=== PATIENT | female | born 1990 | race Caucasian/White ===

== ENCOUNTER 2021-04-04 15:23 | Emergency (ER) | payer MEDICAID, SELFPAY ==
[2021-04-04 15:24] VITALS: BP 152/113; PULSE 111; RESP 14; TEMP 36.2; O2SAT 95; BMI 36.6
[2021-04-04] MEDS: Morphine 4 MG/ML Syringe IM (16:40)
--- NOTE | 2021-04-04 16:45 | RAD_ITS ---
STUDY: X-RAY - LUMBAR SPINE REASON FOR EXAM: Female, 31 years old. Injury/Pain TECHNIQUE: 3 view(s) of the lumbar spine were obtained. COMPARISON: None FINDINGS: Normal lumbar lordosis. There is no substantial scoliosis. There is a normal alignment of the vertebrae. Normal vertebral bodies and endplates. Normal disc space heights. There is no demonstrated fracture. The soft tissue structures are unremarkable. RAD/Lumbar Spine 2 or 3 Views IMPRESSION: Normal x-ray examination of the lumbar spine. Electronically Signed: Bear Avila MD at 17:00 EDT , Service support ,
--- NOTE | 2021-04-04 16:51 | ED.VIS.BACK ---
HPI History of Present Illness Chief Complaint: Back Informant: patient Onset/Context/Timing Onset: Weeks (1) Timing: Continuous Quality: Sharp and Dull Location: Lumbar Worsened by: improves with Nothing Relieved by: Nothing Associated Symptoms Associated Symptoms: Negative for Numbness, Tingling, Radiation to Right Leg, Radiation to Left Leg, Fever, Abdominal Pain, Dysuria, Unable to Ambulate, Unable to Transfer, Urinary Retention, Urinary Incontinence, Constipation and Fecal Incontinence Narrative Narrative: Patient presents with back pain that has been getting worse over the past week. Patient denies any specific trauma or injury. Patient states she does a lot of lifting at work. Patient states the pain is over her lower lumbar area. Patient denies any radiation of the pain to her lower extremities. Patient denies any bowel or bladder changes. Patient denies any saddle anesthesia. Patient states nothing makes her pain better and nothing makes it worse. Patient describes the pain as a constant dull pain but sharp at times. PFSH PFSH Medical History Chronic back pain Home Medications norethindrone ac-eth estradiol [Microgestin 1.5 ()] 1 tab PO DAILY 04/04/21 [History Last Taken Unknown] oxycodone-acetaminophen 1 tab PO Q6H PRN PRN 3 Days #12 tablet 04/04/21 [Rx Last Taken Unknown] Allergy/AdvReac Type Severity Reaction Status Date / Time amoxicillin Allergy Hives Verified 11/27/14 20:10 hydrocodone Allergy Hives Verified 04/04/21 15:24 WOOL Allergy Hives Uncoded 11/27/14 20:06 no surgical history Social History Smoking Status: Current every day smoker tobacco type: cigarettes ROS ROS ED Constitutional Constitutional ED: Denies chills or fever(s) Eyes Eyes: Denies blurry vision or change in vision ENT ENT ED: Denies rhinorrhea or sore throat Cardiovascular Cardiovascular: Denies chest pain or palpitations Respiratory/Chest Respiratory/Chest: Denies cough or dyspnea Gastrointestinal Gastrointestinal: Denies nausea or vomiting Genitourinary Genitourinary ED: Denies dysuria or hematuria Musculoskeletal Musculoskeletal: Reports back pain; Denies neck pain Integumentary Denies abscess or rash Neurologic Neurologic: Denies headache(s) or weakness Allergic/Immunologic Allergic/Immunologic ED: Denies mouth swelling or urticaria EXAM Physical Exam Const Vital Signs: 04/04/21 15:24 Temperature 97.2 F L Temperature Source Temporal Pulse Rate 111 H Respiratory Rate 14 Blood Pressure 152/113 H Blood Pressure Mean 126 Pulse Ox 95 Oxygen Delivery Method Room Air Positive well nourished, well developed and obese General Appearance ED: well developed Nutritional Appearance: obese HEENT Reports moist mucous membranes Neck supple and no JVD Back/Spine Back/Spine Narrative: There is tenderness and spasm over the lumbar paraspinal muscles. Range of motion was limited in all motions of the lumbar spine secondary to pain. There are some mild midline tenderness. There is no bony crepitance or step-off noted. Straight leg raises were negative bilaterally. Strength is 5/5 bilaterally in the lower extremities. Deep tendon reflexes are 2/4 bilaterally in the lower extremities. There are no sensory deficits. Neuro oriented x3 and no sensory deficits noted Sensorium / Orientation: alert Motor Exam: strength 5/5 throughout Deep Tendon Reflexes: Rt Patellar (L4): 2+, Lt Patellar (L4): 2+, Rt Ankle (S1): 2+ and Lt Ankle (S1): 2+ Deep Tendon Reflexes Back: Rt Patellar (L4): 2+, Lt Patellar (L4): 2+, Rt Ankle (S1): 2+ and Lt Ankle (S1): 2+ Psych mental status grossly normal MDM MDM MDM Narrative Medical decision making narrative: Patient requested COVID-19 rapid antigen test. This was obtained and was negative. X-rays of the lumbar spine were obtained. There are 3 views. On my interpretation, there are no acute fractures or spondylolisthesis. Radiologist also interpreted the x-rays and agrees. Patient was advised of her findings. Patient was given a prescription for a short course of Percocet. Patient was instructed to use ice to the area. Patient was instructed to follow-up with her primary care physician in 3 to 5 days. Patient understood and was agreeable with the plan. All questions were answered. Radiography X-Ray: LS SPine, Read by ED Physician, Read by Radiologist, Normal, No Fracture and Normal Bony Alignment Diagnostic Testing: Radiology Impression Lumbar Spine X-Ray 04/04/21 16:45 IMPRESSION: Normal x-ray examination of the lumbar spine. Electronically Signed: Bear Avila MD at 17:00 EDT , Service support , Discharge Plan Triage Chief Complaint: Back ED Provider: Jitendra Cabrera Dx/Rx/DC Orders Clinical Impression: Acute low back pain Instructions: ED Back Pain (Acute or Chronic) Prescriptions: New oxycodone-acetaminophen [oxycodone-acetaminophen] 1 TABLET tablet 1 tab PO Q6H PRN PRN (Reason: Pain) 3 Days Qty: 12 RF: 0 No Action norethindrone ac-eth estradiol [Microgestin .01/08 (21)] 1.5-30 mg-mcg tablet 1 tab PO DAILY RF: 0 Primary Care Provider: Benigno Wright Referrals: Benigno Wright MD [Primary Care Provider] - 3-5 Days Disposition Disposition: Home, Self Care
== END 2021-04-04 19:01 | disposition home or self-care (01) ==
PROVIDERS: Emergency Provider Emergency Medicine; PCP Family Medicine
DX: M54.5 Low back pain (principal); G89.29 Other chronic pain; M62.830 Muscle spasm of back; Z20.822 Contact with and (suspected) exposure to COVID-19; E66.9 Obesity, unspecified; F17.210 Nicotine dependence, cigarettes, uncomplicated; Z79.3 Long term (current) use of hormonal contraceptives
CPT/HCPCS: 72100; 87426; 96372; 99282

== ENCOUNTER 2024-03-26 11:47 | Inpatient (IN) | payer MEDICAID, SELFPAY ==
[2024-03-26] VITALS (107 sets, daily range): BP systolic 135–190; BP diastolic 75–100; PULSE 73–102; RESP 16; TEMP 36.3–37; O2SAT 93–99; BMI 43.4
[2024-03-26 11:48] LABS: Hematocrit 35.6 % (37-47); Hemoglobin 11.6 g/dL (12.0-15.0); Mean Corp Hgb Conc 32.6 g/dL (32-36); Mean Corpuscular Hgb 30.2 pg (27.0-32.0); Mean Corpuscular Volume 92.7 fL (81-99); Mean Platelet Vol. 10.7 fl (6.2-12.0); Platelet Count 223 K/mm3 (150-450); RBC Distribution Width CV 13.2 % (11.6-14.6); RBC Distribution Width SD 43.9 fl (35.1-43.9); Red Blood Count 3.84 M/mm3 (4.2-5.4)
[2024-03-26] MEDS: Lactated Ringers 1,000 ML 15 ML IV (12:00)
[2024-03-26] MEDS: Labetalol (Prefilled) 20 MG/4 ML IV (12:00)
[2024-03-26] MEDS: Magnesium Sulfate 4gm/100mL 4 GM/100 ML IV.SOLN. IV (12:08)
[2024-03-26 12:14] LABS: Protein, Urine (Random) 22.5 mg/dL (<11.9); Protein:Creat Ratio 271 mg/g CRE (0-200)
[2024-03-26] MEDS: Magnesium Sulfate 4gm/100mL 2 GM/50 ML IV.SOLN. IV (12:28)
[2024-03-26] MEDS: Magnesium Sulfate 20 GM/500 ML BAG IV ×2 (12:43→22:36)
[2024-03-26 12:52] LABS: AST(SGOT) 16 U/L (15-37); Alanine Aminotransfer ALT/SGPT 30 U/L (13-56); Creatinine, Serum 0.65 mg/dL (0.55-1.02); EST Glomerular Filtration Rate 109 mL/min (>60); Est Glom Filt Rate - Afr Amer 132 mL/min (>60); Uric Acid 2.8 mg/dL (2.6-6.0)
[2024-03-26] MEDS: NIFEdipine 60 MG Tablet PO (13:13)
[2024-03-26] MEDS: miSOPROStol 25 MCG TABLET VAGINAL ×2 (13:27→17:43)
--- NOTE | 2024-03-26 14:05 | PCM.HP.OB ---
HPI - General General Date of Admission: 03/26/24 Date of Service: 03/26/24 Chief Complaint: elevated blood pressure HPI Narrative DAVID VALDEZ, is a 34 F who presents from the office with elevated blood pressure and a headache. Has a headache today. No vision changes or RUQ pain. No ctx, vb, lof. Good FM. PFSH PFSH Medical History Chronic back pain Home Medications ?Medication ?Instructions ?Recorded ?Last Taken ?Type norethindrone acetate 1.5 1 tab PO DAILY 04/04/21 Unknown History mg-ethinyl estradiol 30 mcg tablet (Microgestin) oxycodone-acetaminophen 5 mg-325 1 tab PO Q6H PRN PRN Pain 3 days 04/04/21 Unknown Rx mg tablet #12 TABLETS Allergy/AdvReac Type Severity Reaction Status Date / Time amoxicillin Allergy Hives Verified 11/27/14 20:10 hydrocodone Allergy Hives Verified 04/04/21 15:24 wool Allergy Hives Verified 04/03/22 14:54 Social History Smoking Status: Current every day smoker tobacco type: cigarettes NST FHR Rate Baby A Baseline: 125 Variability:: Moderate Accelerations:: 15 x 15 Decelerations:: None NST Reactive:: Yes FHR Category:: Category I Uterine Activity:: none Vital Signs Vital Signs Vital Signs: 03/26/24 11:32 03/26/24 11:32 03/26/24 11:48 Temperature Temperature Source Pulse Rate 79 Respiratory Rate Blood Pressure 179/100 H 190/93 H BP Systolic 179 190 BP Diastolic 100 93 03/26/24 11:48 03/26/24 12:10 03/26/24 12:10 Temperature 97.8 F Temperature Source Oral Pulse Rate 99 Respiratory Rate Blood Pressure BP Systolic BP Diastolic 03/26/24 12:10 03/26/24 12:12 03/26/24 12:12 Temperature Temperature Source Pulse Rate 78 Respiratory Rate 16 Blood Pressure 147/90 H BP Systolic 147 BP Diastolic 90 03/26/24 12:22 03/26/24 12:22 03/26/24 12:32 Temperature Temperature Source Pulse Rate 73 Respiratory Rate Blood Pressure 160/93 H 159/95 H BP Systolic 160 159 BP Diastolic 93 95 03/26/24 12:32 03/26/24 12:42 03/26/24 12:42 Temperature Temperature Source Pulse Rate 82 82 Respiratory Rate Blood Pressure 149/94 H BP Systolic 149 BP Diastolic 94 03/26/24 12:52 03/26/24 12:52 03/26/24 13:02 Temperature Temperature Source Pulse Rate 82 Respiratory Rate Blood Pressure 143/92 H 154/94 H BP Systolic 143 154 BP Diastolic 92 94 03/26/24 13:02 03/26/24 13:18 03/26/24 13:18 Temperature Temperature Source Pulse Rate 81 79 Respiratory Rate Blood Pressure 143/92 H BP Systolic 143 BP Diastolic 92 03/26/24 13:34 03/26/24 13:34 03/26/24 13:49 Temperature Temperature Source Pulse Rate 82 Respiratory Rate Blood Pressure 140/87 H 141/85 H BP Systolic 140 141 BP Diastolic 87 85 03/26/24 13:49 03/26/24 14:03 03/26/24 14:03 Temperature Temperature Source Pulse Rate 74 78 Respiratory Rate Blood Pressure 138/84 H BP Systolic 138 BP Diastolic 84 Physical Exam Const alert and no apparent distress General Appearance: comfortable HEENT normocephalic Resp normal respiratory effort GI soft to palpation, non-tender and non-distended external exam normal Narrative: No evidence of herpes There is a 1.5 cm superficial cyst noted over clitoral medeiros Extremity no calf tenderness Extremity Narrative: +Edema bilateral LE's Labs Labs Labs: Hct 35.6 % (37-47) L Hgb 11.6 g/dL (12.0-15.0) L N.gonorrhoeae DNA (GAYLA) Negative (Negative) Group B Strep DNA Pending Assessment & Plan (1) 35 weeks gestation of : PLAN: Admit for severe range blood pressures in the setting of known gHTN and headache. - Labetalol HTN protocol - Mag for seizure prophylaxis - BMZ - GBS on admission - Epidural PRN - Discussed recommendation for delivery given over 34 weeks with severe range blood pressures requiring IV medication and a headache. Discussed risks of prematurity. Discussed r/b/a induction of labor and patient desires to proceed - Cytotec q 4 hours and intracervical osuna when able - Bedside TAUS performed confirming vertex presentation - Pelvis adequate and EFW < 4500 grams. Ancipitate vaginal delivery (2) Elevated blood pressure affecting in third trimester, antepartum: (3) Headache: (4) Pre-eclampsia: (5) Tobacco use: (6) Obesity: (7) History of herpes genitalis: PLAN: No evidence of herpes lesions on exam Has been taking Acyclovir No symptoms of outbreak (8) History of depression: (9) Encounter for planned induction of labor:
[2024-03-26 14:15] LABS: Group B Strep DNA By PCR Negative (Negative); Internal Control PASS; Probe Check PASS; Specimen Processing Control PASS
[2024-03-26 15:03] LABS: Absolute Lymphocyte Count 1.93 X10^3/uL (0.83-4.51); Absolute Neutrophil Count 9.7 X10^3/uL (2.0-7.7); Basophil% 0.8 % (0-1); Eosinophil# 0.21 X10^3/uL; Eosinophils% 1.6 % (0-5); Lymphocyte # 1.93 X10^3/ul (0.83-4.51); Lymphocyte % 14.9 % (19-41); Monocyte# 0.93 X10^3/uL; Monocyte% 7.2 % (0-10); NRBC Flagged by Analyzer 0 % (0-5); Neutrophil # 9.71 X10^3/uL (2.7-7.7); Neutrophil % 74.7 % (47-70)
[2024-03-26] MEDS: Betamethasone/Betamethasone 30 MG/5 ML Vial 12 MG IM (15:31)
--- NOTE | 2024-03-26 16:35 | PCM.PN.BLA ---
Progress Note pt comfortable and offers no complaints. Assessment & Plan Assessment/Plan (1) Encounter for planned induction of labor: PLAN: Plan Cvx remains closed and unable to place intracervical osuna. Cont with Cytotec q 4 hours at this time. Will try osuna placement again with next cervical exam.
[2024-03-26 20:31] LABS: Syphilis Antibodies Non-reactive
[2024-03-26] MEDS: Acetaminophen 500 MG Tablet PO (21:09)
[2024-03-26] MEDS: 0.9% Normal Saline Single 100 ML IV.SOLN. INTRA-UTER (22:45)
--- NOTE | 2024-03-26 22:53 | PCM.PN.BLA ---
Progress Note pt doing well and offers no complaints. feels well. Assessment & Plan Assessment/Plan (1) Encounter for planned induction of labor: PLAN: Intracervical osuna inserted in usual fashion and filled with 30 cc saline. Cervix 0.5/t/h so an additional dose of cytotec given. Will start pitocin per protocol 4 hours after cytotec. (2) Pre-eclampsia:
[2024-03-26] MEDS: miSOPROStol 25 MCG TABLET PO (23:05)
[2024-03-26] MEDS: Oxytocin 15 Units/NS 250ml 15 UNITS/250 ML IV.SOLN 83 UNITS IV (23:30)
[2024-03-27] VITALS (164 sets, daily range): BP systolic 82–168; BP diastolic 48–96; PULSE 38–102; RESP 14–21; TEMP 36.1–37.2; O2SAT 81–99
[2024-03-27] MEDS: Acetaminophen 500 MG Tablet PO ×2 (03:26→21:43)
[2024-03-27] MEDS: Oxytocin 15 Units/NS 250ml 15 UNITS/250 ML IV.SOLN 2 UNITS IV (05:08)
[2024-03-27] MEDS: Magnesium Sulfate 20 GM/500 ML BAG IV ×2 (07:50→17:55)
[2024-03-27] MEDS: NIFEdipine 60 MG Tablet PO (10:54)
[2024-03-27] MEDS: LACTATED RINGERS 500 ML 999 ML IV ×2 (11:07→13:27)
[2024-03-27] MEDS: Lactated Ringers 1,000 ML 200 ML IV ×3 (11:34→19:06)
[2024-03-27] MEDS: Betamethasone/Betamethasone 30 MG/5 ML Vial 12 MG IM (14:34)
[2024-03-27] MEDS: Lactated Ringers 1,000 ML 900 ML IV (17:56)
[2024-03-27] MEDS: fentaNYL-bupivacaine (epidural) 100 ML BAG EPIDURAL (20:02)
[2024-03-27] MEDS: Sodium Citrate/Citric Acid 30 ML UDC PO (21:42)
[2024-03-27] MEDS: Cefazolin 2 GM in 0.9% Normal Saline (100mL Bag) 100 ML IV (21:49)
[2024-03-27] MEDS: TRANEXAMIC ACID 1,000 MG in 0.9% Normal Saline (100mL Bag) 100 ML 440 MG IV (21:59)
--- NOTE | 2024-03-27 22:09 | PLAC_PTH ---
PATIENT: DAVID VALDEZ LOC: [facility] U#:[id number] AGE/SX: 34/F ROOM: WP014 RE03/26/[address]: Dr. Milagro Richards MD : 1990 BED: 1 DIS: 03/30/2024 SPEC #: [id number] RECD: 03/28/24 00:39 STATUS: JOSH NAVARRO #: [id number] CARMELO: 03/27/24 22:[address]: Milagro Richards DEPT: SURGICAL PATHOLOGY RECD BY: Marlyn Sahu ENTERED: 03/30/24 07:46 SP TYPE: PLACENTA OTHR DR: Dr. Benigno Wright MD Tissues: A - Placenta, NOS B - Fallopian tube Procedures: Surgery Specimen Level II Surgery Specimen Level V HEADER OPERATION: Primary section PRE-OP DIAGNOSIS: Preeclampsia TISSUE SUBMITTED: A- Placenta, B- Bilateral fallopian tubes MICROSCOPIC DIAGNOSIS A. Placenta: Placental disc - third trimester placenta (452 gm). Membranes - no pathologic diagnosis. Umbilical cord - three blood vessels and no pathologic diagnosis. B. Bilateral fallopian tubes, salpingectomy: Bilateral fallopian tubes, no pathologic diagnosis. SJ: 04/01/2024 MICROSCOPIC DESCRIPTION Slides are reviewed. GROSS DESCRIPTION A. SPECIMEN: PLACENTA / CLINICAL INFORMATION: A. Weight: 2.56 kg B. Gestational Age:35 weeks C. Sex: Male PLACENTAL WEIGHT (POST FIXATION): 452 gm PLACENTAL DIMENSIONS: 15.0 x 14.0 x 4.0 cm PLACENTAL SHAPE: Usual ovoid PLACENTAL WEIGHT FOR GESTATIONAL AGE: Within 10-99th percentile MEMBRANES - Present A. Insertion: Marginal B. Site of rupture from edge: at the margin of placental disc C. Color of membrane: Block-barry D. Abnormalities: None UMBILICAL CORD - Present A. Color: Block-barry B. Insertion: Central C. Length: 39.0 cm D. Diameter: 1.0 cm E. Number of vessels: Three F. Abnormalities: None PLACENTAL DISC - Present A. Color of surface: Block-barry B. surface abnormalities: None C. Maternal cotyledons: Intact with minimal tears D. Attached retro placental clot: No clot E. Cut surface: Dark red and spongy F. Lesions: None G. Separate clot: Absent SECTIONS SUBMITTED: (6 cassettes) 1. Membrane roll 2. Cord, maternal end 3. Cord, end 4. Placental disc, and maternal surfaces 5. Placental disc, and maternal surfaces 6. Placental disc, and maternal surfaces 03/31/2024 B. Received in fixative is one container labeled with the patient's name and designated bilateral fallopian tubes. The specimen consists of bilateral fallopian tubes including fimbrial ends. Right fallopian tube measures 8.0cm in length and 0.7cm in diameter. Left fallopian tube measures 7.5 cm in length and 0.7 cm in diameter. Sections reveal unremarkable cut surfaces. Solar Manager sections are submitted in two cassettes with each cassette containing one fallopian tube. ANDREA/ 03/30/2024 TC:4 CPT: [id number]
[2024-03-27] MEDS: Azithromycin 500 MG in Dextrose 5%-Water (250mL Bag) 250 ML 250 MG IV (22:41)
--- NOTE | 2024-03-27 22:46 | OP.PCM_ITS ---
Maternal Data Information Final JUAN CARLOS: 04/29/24 Gestational age: 35 2/7 Details Operative Information Date of Procedure: 03/27/24 Pre-Operative Diagnosis: failed induction, preeclampsia with severe features, sterilization request Post-Operative Diagnosis: same Classification: TAHIRA Procedure Type: low transverse (with bilateral salpingectomy) digital content coordinator #1: Adriano Serna Type of Anesthesia: Epidural Anesthesiologist: Morris Jiang Special Medications: duramorph, tranexamic acid Antibiotic Given: Ancef 2 grams IV x1 and Zithromax 500 mg/5 mL X1 Drain: Graham to straight drain Estimated Blood Loss: 900 Fluids Replaced: 750 Procedure Start Time: 22:06 Procedure Stop Time: 22:52 Time of Delivery: 22:09 Findings Description of Procedure: The patient was taken to the operating room. She was prepped and draped in the dorsal supine position with a leftward tilt. A Pfannenstiel skin incision was made approximately 2 cm above the symphysis pubis and carried through to underlying layer fascia with the scalpel. The fascia was incised incised in the midline and extended laterally with the Schaefer scissors. The fascia was dissected off the rectus muscles with blunt and sharp dissection. The rectus muscles were in the midline and the peritoneum was entered bluntly. The peritoneal incision was stretched and the bladder blade was placed. The Ketan O retractor was placed in the usual fashion and care was taken to ensure no abdominal contents were trapped underneath it. The uterine incision was made in a low transverse fashion with the scalpel and extended superiorly and inferiorly with blunt dissection. The amniotic membranes were ruptured bluntly and clear amniotic fluid returned. The infant's head was brought to the incision in the flexed position and delivered without difficulty. The remainder of the was delivered with gentle traction and fundal pressure in the standard fashion. The mouth and nares were bulb suctioned. The cord was clamp ed and cut as the infant was stimulated. Cord clamping was delayed. The infant was handed off to the waiting nursing staff. The placenta was delivered with fundal massage and gentle traction in the standard fashion. The uterus was left in situ and cleared of all clots and debris. The uterine incision was closed with #1 Vicryl in a running locked fashion. Several #1 Vicryl [id number] sutures were needed through a bleeding sinus on the left side to obtain attain hemostasis. The incision was examined and was found to be hemostatic. The left fallopian tube was identified and followed out to the fimbriated end. It was tented up with Yudi clamps. The LigaSure device was used to clamp, seal and transect the antimesenteric portions of the tube and transect the tube of the cornual insertion. Excellent hemostasis was noted. The same procedure was performed on the contralateral side and excellent hemostasis was noted. The uterine incision was reexamined and found to be hemostatic. Some Heema blast was placed over the uterine incision.. The rectus muscles were examined and any bleeding was Bovie cauterized. The parietal peritoneum and rectus muscles were closed en bloc with an 0 Vicryl running suture. Heema blast was placed over the rectus muscles. The rectus fascia was examined and any bleeding was Bovie cauterized and the rectus fascia was closed with looped #1 PDS suture in a running standard fashion. The subcutaneous tissue was examining and any bleeding was Bovie cauterized. The subcutaneous tissue was reapproximated with 3-0 Vicryl suture. The skin was closed in a subcuticular fashion by the VARNISH MIXER with me present in the labor and delivery suite. I performed the remainder of the procedure with assistance. All sponge, lap, and needle counts were correct. The patient was taken to her room for recovery in a stable condition. Presentation: Positive for Vertex Amniotic Membrane Rupture Type: Artificial Amniotic Fluid Description: Clear Placental Delivery Description: Manual Removal Placenta Disposition: Sent to Pathology Specimen(s) Sent to Pathology: placenta and tubes Cord Vessel Description: 3 Vessels Cord Entanglement: None Cord Gases: ABG and VBG Infant A Gender: Male (5lb 2 oz, Rolo JR) (1 minute): 8 (5 minute): 9 Delayed Cord Clamping: Yes Complications Complications: none Admit VTE Documentation VTE Present on Admission: No VTE Mechan Device Prophylaxis: SCD's VTE Pharm Prophylaxis Ordered: Yes
[2024-03-28] VITALS (245 sets, daily range): BP systolic 103–136; BP diastolic 63–82; PULSE 68–114; RESP 15–20; TEMP 35.8–37.5; O2SAT 86–99
[2024-03-28 00:52] LABS: Pathology Specimen OB SEE PATHOLOGY REPORT
[2024-03-28] MEDS: Ketorolac 30 MG/ML Syringe IV ×4 (01:02→18:56)
[2024-03-28] MEDS: Lactated Ringers 1,000 ML 50 ML IV (02:49)
[2024-03-28] MEDS: Acetaminophen 500 MG Tablet 1000 MG PO ×4 (03:26→21:32)
[2024-03-28] MEDS: Magnesium Sulfate 20 GM/500 ML BAG IV ×2 (04:02→14:20)
--- NOTE | 2024-03-28 05:57 | NURSING ---
2L nasal cannula applied to pt at this time, RN reminded pt of importance of maintaining SpO2 greater than 90%, pt verbalized understanding and consents to NC
[2024-03-28 06:11] LABS: Hematocrit 29.6 % (37-47); Hemoglobin 9.6 g/dL (12.0-15.0); Mean Corp Hgb Conc 32.4 g/dL (32-36); Mean Corpuscular Hgb 30.9 pg (27.0-32.0); Mean Corpuscular Volume 95.2 fL (81-99); Mean Platelet Vol. 11.2 fl (6.2-12.0); Platelet Count 216 K/mm3 (150-450); RBC Distribution Width CV 13.2 % (11.6-14.6); RBC Distribution Width SD 45.1 fl (35.1-43.9); Red Blood Count 3.11 M/mm3 (4.2-5.4); White Blood Count 18.1 K/mm3 (4.4-11.0)
[2024-03-28] MEDS: Enoxaparin 40 MG/0.4 ML Syringe SC ×2 (09:37→21:32)
[2024-03-28] MEDS: Sertraline 50 MG Tablet PO (09:37)
[2024-03-28] MEDS: Senna/Docusate Sodium 1 Tablet PO (09:37)
[2024-03-28] MEDS: NIFEdipine 60 MG Tablet PO (09:37)
[2024-03-28] MEDS: LACTATED RINGERS 500 ML 999 ML IV ×2 (09:45→20:04)
--- NOTE | 2024-03-28 12:02 | PCM.PN.OB ---
Subjective Subjective Doing well per patient and nursing staff. Ambulating and taking PO without difficulty. Voiding and passing flatus. Pain controlled. , services for assistance. Denies headache, visual changes, chest pain, shortness of breath, leg pain or increased bleeding. Lochia normal. Objective Data Objective Data Vital Signs: Vital Signs Temp Pulse Resp BP Pulse Ox O2 Del Method O2 Flow Rate 96.8 F L 71 18 107/67 88 Room Air 2 03/28/24 11:15 03/28/24 12:00 03/28/24 11:15 03/28/24 11:15 03/28/24 12:00 03/28/24 11:15 03/28/24 06:21 Oxygen Flow Rate (L/min) 2 Oxygen Delivery Method Room Air Weight: 253 lb 8.505 oz Body Mass Index (BMI) 43.4 Intake & Output: Intake and Output for Last 24 Hours 03/26/24 03/27/24 03/28/24 23:59 23:59 23:59 Intake Total 1244.17 / 1244.17 6951.06 / 6951.06 2141.66 / 2141.66 Output Total 1775 / 1775 3075 / 3075 837 / 837 Balance -530.83 / -530.83 3876.06 / 3876.06 1304.66 / 1304.66 Lab / Micro Data 03/28/24 05:30 03/26/24 11:30 Labs: Laboratory Results - last 24 hr 03/28/24 05:30: WBC 18.1 H, RBC 3.11 L, Hgb 9.6 L, Hct 29.6 L, MCV 95.2, MCH 30.9, MCHC 32.4, RDW Std Deviation 45.1 H, RDW Coeff of Kristy 13.2, Plt Count 216, MPV 11.2 Physical Exam Const alert and oriented x3 General Appearance: cooperative Orientation / Consciousness: awake, oriented to person, oriented to place and oriented to time Exam Limitations: no limitations HEENT normocephalic Head and Scalp: normal to inspection, normocephalic and atraumatic Face and Sinus: normal facial exam Eyes General Eye: normal appearance of both eyes Neck full ROM Chest Chest: symmetrical chest wall rise Resp normal respiratory effort and normal air movement Auscultation: clear to auscultation bilaterally Cardio regular rate, regular rhythm, S1 normal heart sound, S2 normal heart sound, no murmurs, no rub, no gallops and no clicks GI normal to inspection, nondistended, normoactive bowel sounds and non-tender GI Narrative: Dressing dry and intact appearance of the vagina normal Bladder / Kidney Exam: no CVA tenderness Back/Spine normal ROM Extremity normal to inspection and full ROM Skin no rashes or lesions noted Neuro oriented x3, CN's II-XII intact bilaterally and moves all extremities Sensorium / Orientation: awake, alert and oriented to person Motor Exam: clonus absent Deep Tendon Reflexes: Rt Patellar (L4): 2+ and Lt Patellar (L4): 2+ Assessment & Plan (1) History of depression: (2) Pre-eclampsia: (3) Elevated blood pressure affecting in third trimester, antepartum: (4) Delivery by section:
--- NOTE | 2024-03-28 12:42 | NURSING ---
1215- pulse ox noted to be 89-92% on room air, noted some exp wheeze to lt ant upper and lower that cleared w cough. o2 placed briefly at 2 liters. up to br and back to chair at bedside and o2 placed back on.
--- NOTE | 2024-03-28 14:33 | PCM.PN.OB ---
Subjective Subjective Pain well controlled, average lochia. No N/V. No SOMERS. Denies CP or SOB Objective Data Objective Data Vital Signs: Vital Signs Temp Pulse Resp BP Pulse Ox O2 Del Method O2 Flow Rate 96.8 F L 86 18 119/75 97 Room Air 2 03/28/24 11:15 03/28/24 14:28 03/28/24 13:25 03/28/24 13:25 03/28/24 14:28 03/28/24 13:25 03/28/24 06:21 Oxygen Flow Rate (L/min) 2 Oxygen Delivery Method Room Air Weight: 115 kg Body Mass Index (BMI) 43.4 Intake & Output: Intake and Output for Last 24 Hours 03/26/24 03/27/24 03/28/24 23:59 23:59 23:59 Intake Total 1244.17 / 1244.17 6951.06 / 6951.06 2452.50 / 2452.50 Output Total 1775 / 1775 3075 / 3075 978 / 978 Balance -530.83 / -530.83 3876.06 / 3876.06 1474.50 / 1474.50 Lab / Micro Data 03/28/24 05:30 03/26/24 11:30 Labs: Laboratory Results - last 24 hr 03/28/24 05:30: WBC 18.1 H, RBC 3.11 L, Hgb 9.6 L, Hct 29.6 L, MCV 95.2, MCH 30.9, MCHC 32.4, RDW Std Deviation 45.1 H, RDW Coeff of Kristy 13.2, Plt Count 216, MPV 11.2 Physical Exam Const alert General Appearance: cooperative GI GI Narrative: soft, moderate distention, fundus firm, appropriately tender. Abdominal bandage clean dry and intact Assessment & Plan (1) Delivery by section: (2) Pre-eclampsia: PLAN: With severe features. Cont. w/ magensium 24 hrs PP. Cont. w/ Po procardia maintanence. URine output low, responded to IVF bolus now low again> Is>>Os by 2+ liters. Will give IV lasix x 1 as is needing O2 to maintain O2 sats. However, may need more IVF in short term and will have to balance Is and Os. She required several fluid bolus during labor to maintain BP due to late decels. Anemia appropriate for intraop blood loss.
[2024-03-28] MEDS: Furosemide 20 MG/2 ML VIAL IV (14:51)
--- NOTE | 2024-03-28 20:20 | RAD_ITS ---
INDICATION: dyspnea postop EXAMINATION/TECHNIQUE: X-RAY - XR Chest 1 View COMPARISON: FINDINGS: LINES/DEVICES: None. LUNGS: No consolidation, edema or effusion. No pneumothorax. MEDIASTINUM AND CARDIOVASCULAR STRUCTURES: Cardiac silhouette not enlarged. Central airways and mediastinal contour are unremarkable. BONES AND SOFT TISSUES: Unremarkable. RAD/Chest 1 View (Portable) IMPRESSION: No radiographic evidence of acute cardiopulmonary disease. Electronically Signed: Dano Collins DO at 20:33 EDT ,
[2024-03-28 20:32] LABS: Hematocrit 29.7 % (37-47); Hemoglobin 9.8 g/dL (12.0-15.0); Mean Corpuscular Hgb 31.5 pg (27.0-32.0); Mean Corpuscular Volume 95.5 fL (81-99); Mean Platelet Vol. 10.5 fl (6.2-12.0); Platelet Count 175 K/mm3 (150-450); RBC Distribution Width CV 13.5 % (11.6-14.6); Red Blood Count 3.11 M/mm3 (4.2-5.4); White Blood Count 13.2 K/mm3 (4.4-11.0)
[2024-03-28 21:00] LABS: Anion Gap 6 (5-15); BUN 14 mg/dL (7-18); Chloride 102 mmol/L (98-107); Creatinine, Serum 0.54 mg/dL (0.55-1.02); EST Glomerular Filtration Rate 136 mL/min (>60); Est Glom Filt Rate - Afr Amer 165 mL/min (>60); Estimated Creatinine Clearance 179.21 ml/min; Glucose 111 mg/dL (74-106); Potassium 3.6 mmol/L (3.5-5.1); Sodium Level 136 mmol/L (136-145)
[2024-03-28 23:50] LABS: Pathology Specimen OB SEE PATHOLOGY REPORT
[2024-03-29] VITALS (128 sets, daily range): BP systolic 132–180; BP diastolic 77–94; PULSE 30–86; RESP 16; TEMP 35.8–36.8; O2SAT 81–99
[2024-03-29] MEDS: Ibuprofen 600 MG Tablet PO ×4 (00:32→19:18)
[2024-03-29] MEDS: Acetaminophen 500 MG Tablet 1000 MG PO ×4 (03:46→21:47)
--- NOTE | 2024-03-29 05:23 | NURSING ---
RN entered room, pt noted to be sleeping in bed and pulse ox was 93-94%, oxygen increased to 2 L via nasal cannula
[2024-03-29 06:06] LABS: Hematocrit 28.8 % (37-47); Hemoglobin 9.2 g/dL (12.0-15.0); Mean Corp Hgb Conc 31.9 g/dL (32-36); Mean Corpuscular Hgb 30.5 pg (27.0-32.0); Mean Corpuscular Volume 95.4 fL (81-99); Mean Platelet Vol. 10.7 fl (6.2-12.0); Platelet Count 176 K/mm3 (150-450); RBC Distribution Width CV 13.5 % (11.6-14.6); Red Blood Count 3.02 M/mm3 (4.2-5.4)
[2024-03-29 06:24] LABS: ALB/GLOB Ratio 0.6 RATIO (0.9-2.4); AST(SGOT) 38 U/L (15-37); Alanine Aminotransfer ALT/SGPT 66 U/L (13-56); Alkaline Phosphatase 99 U/L (45-117); Anion Gap 4 (5-15); BUN 12 mg/dL (7-18); BUN/Creat Ratio 23.3 RATIO (10-20); Calcium,Total 7.9 mg/dL (8.5-10.1); Chloride 103 mmol/L (98-107); Creatinine, Serum 0.51 mg/dL (0.55-1.02); EST Glomerular Filtration Rate 144 mL/min (>60); Est Glom Filt Rate - Afr Amer 174 mL/min (>60); Estimated Creatinine Clearance 189.75 ml/min; Globulin 3.6 g/dL (2.2-4.2); Glucose 94 mg/dL (74-106); Potassium 3.6 mmol/L (3.5-5.1); Protein, Total 5.6 g/dL (6.4-8.2); Sodium Level 136 mmol/L (136-145)
[2024-03-29] MEDS: Enoxaparin 40 MG/0.4 ML Syringe SC ×2 (09:45→21:47)
[2024-03-29] MEDS: Sertraline 50 MG Tablet PO (09:47)
[2024-03-29] MEDS: Senna/Docusate Sodium 1 Tablet PO (09:47)
--- NOTE | 2024-03-29 09:59 | PCM.PN.OB ---
Subjective Subjective Pain well controlled, average lochia.Denies SOMERS or visual changes. Denies CP os SOB Objective Data Objective Data Vital Signs: Vital Signs Temp Pulse Resp BP Pulse Ox O2 Del Method O2 Flow Rate 98.2 F 66 16 144/86 H 99 Nasal Cannula 1 03/29/24 07:57 03/29/24 08:25 03/29/24 07:57 03/29/24 07:57 03/29/24 08:25 03/29/24 07:57 03/29/24 07:57 Oxygen Flow Rate (L/min) 1 Oxygen Delivery Method Nasal Cannula Weight: 115 kg Body Mass Index (BMI) 43.4 Intake & Output: Intake and Output for Last 24 Hours 03/27/24 03/28/24 03/29/24 23:59 23:59 23:59 Intake Total 6951.06 / 6951.06 6022.25 / 6022.25 0 / 0 Output Total 3075 / 3075 2407 / 2407 1350 / 1350 Balance 3876.06 / 3876.06 3615.25 / 3615.25 -1350 / -1350 Lab / Micro Data 03/29/24 05:50 03/29/24 05:50 Labs: Laboratory Results - last 24 hr 03/28/24 20:15: WBC 13.2 H, RBC 3.11 L, Hgb 9.8 L, Hct 29.7 L, MCV 95.5, MCH 31.5, MCHC 33.0, RDW Std Deviation 46.0 H, RDW Coeff of Kristy 13.5, Plt Count 175, MPV 10.5, Sodium 136, Potassium 3.6, Chloride 102, Carbon Dioxide 28.0, Anion Gap 6, BUN 14, Creatinine 0.54 L, Estim Creat Clear Calc 179.21, Est GFR (MDRD) Af Amer 165, Est GFR (MDRD) Non-Af 136, BUN/Creatinine Ratio 26.0 H, Glucose 111 H, Calcium 7.0 L 03/29/24 05:50: WBC 11.0, RBC 3.02 L, Hgb 9.2 L, Hct 28.8 L, MCV 95.4, MCH 30.5, MCHC 31.9 L, RDW Std Deviation 47.0 H, RDW Coeff of Kristy 13.5, Plt Count 176, MPV 10.7, Sodium 136, Potassium 3.6, Chloride 103, Carbon Dioxide 29.0, Anion Gap 4 L, BUN 12, Creatinine 0.51 L, Estim Creat Clear Calc 189.75, Est GFR (MDRD) Af Amer 174, Est GFR (MDRD) Non-Af 144, BUN/Creatinine Ratio 23.3 H, Glucose 94, Calcium 7.9 L, Total Bilirubin 0.20, AST 38 H, ALT 66 H, Alkaline Phosphatase 99, Total Protein 5.6 L, Albumin 2.0 L, Globulin 3.6, Albumin/Globulin Ratio 0.6 L Micro: Microbiology 03/26/24 Unknown Genital vaginal Group B Streptococcus Culture - Final Group B Beta Streptococcus is not isolated. Radiography Diagnostic Testing: Radiology Impression Chest X-Ray 03/28/24 20:20 IMPRESSION: No radiographic evidence of acute cardiopulmonary disease. Electronically Signed: Dano Collins DO at 20:33 EDT Reading Location ID and State: [facility] / [place] Tel [phone], Service support , Physical Exam Narrative awake, alert, NAD abd- bandage clean, dry and intact ext 2+ edema 2+ dtrs Assessment & Plan (1) Delivery by section: PLAN: Acute blood loss anemia on postoperative day 2 appropriate for blood loss during surgery. Other labs reviewed and are stable. Chest x-ray reviewed and stable. Routine postoperative care. Preeclampsia with severe features. Magnesium off 24 hours after delivery. Patient is doing well. Graham catheter removed this morning. Output is finally picking up and patient is beginning to diurese. Still very far ahead I input compared output so we will give dose of Lasix today to help with diuresis. Continue Procardia. Monitor blood pressures now that she is off the magnesium. If stable may be able to discharge home tomorrow. is doing well.
[2024-03-29] MEDS: NIFEdipine 60 MG Tablet PO (10:12)
[2024-03-29] MEDS: Furosemide 40 MG/4 ML Vial IV (10:43)
[2024-03-29] MEDS: 0.9% Saline Lock 10 ML Syringe IV (10:52)
--- NOTE | 2024-03-29 13:10 | CASEMGMT ---
Social Work Assessment Labor and Delivery Unit Patient Address: [address] [place] [address] [address] [place] [address] Phone number: Date of Referral: 03/28/2024 Time of Referral: 00:08 Referred By: Milagro Richards Date of Intervention: ?03/29/2024 Time of Intervention:? 13:07 Reason for Referral: PHQ-9 trigger History obtained from: Medical records and mother of baby (MOB). ? Household composition: MOB, Darleen Cespedes, father of baby (FOB) Lakhwinder Schneider, age 39, ?MOB?s daughter Micki Cullen, age 16, baby boy Lakhwinder Schneider Jr., born 03/27/24, and the FOB?s mother. ?MOB described the most current as ?unplanned? and reported that she and the FOB do not desire to add to their family at this time. MOB had a tubal ligation. Patient's parent/guardian status: MOB and FOB are not but have been together for 16 years. FOB is involved and will also help provide care for baby. MOB denied any concerns of domestic violence with the FOB. ? Medical History: MOB has had 2 pregnancies and 2 births. MOB received care through the [facility]. Baby was born at 35 weeks and 2 days according to MOB. Baby?s birthweight: 6 pounds, 3 ounces. Apgars: 8 and 9. Cytogenetics Technologist: Dr. Chin. ? Educational Status: MOB denied any issues or concerns with reading or writing with herself or the FOB. MOB is a high school graduate and the FOB has a 10th grade education. inancial Status: MOB reported the household income is sufficient to meet the needs of her family at this time although MOB reported that she is worried with having a new, unplanned baby.? MOB expressed a concern over childcare.? 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 MOB gets 12 weeks of maternity leave and the FOB doesn?t get any time off from his job. MOB?s grandmother helps out financially when needed as well as the FOB?s mother who lives in the home. ?(pays half the rent and the electric bill). MOB reported that she goes to the [facility] to supplement with food as needed. ?? Infant Supplies: LAST reported she has all of the supplies she needs for baby at this time including but not limited to: Car Seat, bassinet, diapers, bottles and clothing. MOB reported she doesn?t have a breast pump yet however the systems consultant ?is helping secure one and MOB stated she can also get one through her insurance company and/or WIC if needed. Childcare/Caregiver(s): LAST reported she is still looking into childcare however stated that she had planned on she and the FOB being the primary caregivers since they work different shift.? sawmill production worker inquired about the current work shifts. TIERNEY currently works from 10:45pm-6:45am and LAST works anywhere between 8am and 4pm.? sawmill production worker talked with the MOB at length about childcare concerns and the need for the FOB to be able to sleep without working all through the night, not getting any sleep and having to care for a all day and not get to sleep until possibly 4pm.? sawmill production worker reviewed risks and concerns which MOB verbalized she understood and agreed with. LAST reported she will call her insurance company to see if any of her insurance will help pay for childcare.? Transportation:? 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 MOB reported TIERNEY only drives himself to and from work and will not ever drive with the baby in the car. sawmill production worker also provided verbal education on the dangers of the FOB should he decide to drive with the baby in the car and not being licensed should he get pulled over by law enforcement for any reason which MOB verbalized she understood. sawmill production worker explained that if the FOB were to get arrested for driving without a license and the baby was in the car that CS[facility] could get called to come get the baby if n one else could be reached. MOB assured health care social worker that the FOB will not drive with baby under any circumstance. MOB reported there are two cars and Micki also drives. ?? Programs/Agencies Involved: [facility] and Family [facility] for [facility].? MOB reported she?s going to reapply for [employer] [place]. WIC is involved.? MOB reported that there has been legal involvement with the FOB due to driving without a license. Children Services/Legal Issues:? Yes. MOB reported 2 times when Children Services was involved with Micki.? The first time there were allegations that Micki had a bruise on her buttocks at the age of 1 and the second time, roughly 2-3 years ago were allegations that the FOB was selling drugs.? MOB stated that both allegations were false and that nothing was ever found to be true. Behavioral Health Issues: ??Mental Health History: LAST has a history of depression and anxiety and is currently on Zoloft.? MOB reported that she feels like it?s being managed. MOB denied ever being involved with counseling. MOB denied any mental health issues with the FOB. ???Substance Use History: MOB denied. ??Family History: None reported. Drug Screens: ?No drug screens at the time of admission for . sawmill production worker administered the [place] Depression Scale.? LAST?s score was a 6.? MOB reported that she previously was feeling overwhelmed during the whole birthing experience and that since she?s given , the depression and anxiety is better. sawmill production worker provided education on the score and when to seek help if needed which MOB verbalized she understood. MOB denied any suicidal ideation. Family/Social Stressors: MOB reported overall financial stressors however reported that she has a strong support system and utilizes community resources when needed.? MOB reported that her mother and stepfather both in 2019 two months apart from cancer however LAST?s mother just two months after her stage 4 lung cancer diagnosis.? MOB stated it?s hard not having her mother and stepfather around and MOB still grieves their . ?? Support Systems: Yes.? MOB identified the FOB as her primary support as well as MOB?s grandmother and MOB?s stepmother.? Maternal grandmother is and maternal grandfather is not actively involved with the MOB and is said to be ?going through his own stuff?. ? Depression/Shaken Baby/Safe Sleeping: sawmill production worker provided verbal and written education on PPD, Safe Sleeping and Shaken Baby.? MOB verbalized an understanding. ??? ASSESSMENT:? MOB provided consent to social work visit. FOB wasn?t present at the time of the visit and was said to be home sleeping due to work. No one else was in the room at the time of the visit. Mother was holding baby throughout the assessment and kept making comments about being excited to have her baby as she and the FOB tried for years to get and never could.? MOB also stated she?s always wanted a boy. MOB denied any domestic violence, drug or alcohol abuse or any health or safety related concerns in the home. MOB reported she feels safe at home, reported her anxiety and depression are managed and denied feeling unsafe or any suicidal ideation. MOB did admit to smoking 10 cigarettes daily while which MOB reported was half of what she smoked prior to getting . sawmill production worker provided verbal education on the dangers of second hand smoke for baby which MOB verbalized she understood and stated that no one will be smoking in the home or around baby or in the car at all. Safe Plan of Care for related to substance use: N/A; not needed. ? PLAN:? Baby to be discharged home when ready.? sawmill production worker also provided written information on depression, depression resources and Help Me Grow.? sawmill production worker also verbally reviewed community food pantries. Possible assistance with resources with childcare, counseling and 211 per mother?s preference. Louisa Lewis, COUNTY AGRICULTURAL AGENT, DRAWING OPERATOR
[2024-03-29] MEDS: NIFEdipine 10 MG Capsule PO ×2 (14:05→22:12)
[2024-03-29] MEDS: NIFEdipine 30 MG Tablet PO (14:05)
[2024-03-29] MEDS: Labetalol 200 MG Tablet PO (22:12)
[2024-03-30] VITALS (9 sets, daily range): BP systolic 143–158; BP diastolic 76–88; PULSE 71–78; RESP 16; TEMP 35.8–36.3; O2SAT 94–97
[2024-03-30] MEDS: 0.9% Saline Lock 10 ML Syringe IV (01:12)
[2024-03-30] MEDS: Ibuprofen 600 MG Tablet PO ×3 (01:12→12:36)
[2024-03-30] MEDS: Acetaminophen 500 MG Tablet 1000 MG PO ×2 (03:57→09:05)
[2024-03-30] MEDS: Enoxaparin 40 MG/0.4 ML Syringe SC (09:05)
[2024-03-30] MEDS: NIFEdipine 90 MG Tablet PO (09:12)
[2024-03-30] MEDS: Senna/Docusate Sodium 1 Tablet PO (09:12)
[2024-03-30] MEDS: Sertraline 50 MG Tablet PO (09:12)
[2024-03-30] MEDS: Labetalol 200 MG Tablet PO (09:15)
--- NOTE | 2024-03-30 13:10 | PCM.PN.OB ---
Subjective Subjective pt doing well. denies SOMERS, vision changes, CP, SOB, leg pain. Lochia minimal. Pain minimal. Ambulating and voiding without difficulty. Normal BM'S. Rias diet without N/V. Objective Data Objective Data Vital Signs: Vital Signs Temp Pulse Resp BP Pulse Ox O2 Del Method O2 Flow Rate 97.3 F L 75 16 143/84 H 97 Room Air 1 03/30/24 12:45 03/30/24 12:45 03/30/24 12:45 03/30/24 12:45 03/30/24 12:45 03/30/24 12:45 03/29/24 07:57 Oxygen Flow Rate (L/min) 1 Oxygen Delivery Method Room Air Weight: 253 lb 8.505 oz Body Mass Index (BMI) 43.4 Intake & Output: Intake and Output for Last 24 Hours 03/28/24 03/29/24 03/30/24 23:59 23:59 23:59 Intake Total 6022.25 / 6022.25 0 / 0 Output Total 2407 / 2407 3250 / 3250 Balance 3615.25 / 3615.25 -3250 / -3250 Lab / Micro Data 03/29/24 05:50 03/29/24 05:50 Micro: Microbiology 03/26/24 Unknown Genital vaginal Group B Streptococcus Culture - Final Group B Beta Streptococcus is not isolated. Physical Exam Const alert and no apparent distress Constitutional Narrative: Up walking around with baby in arms General Appearance: comfortable HEENT normocephalic Resp normal respiratory effort GI soft to palpation, non-tender and non-distended GI Narrative: dressing c/d/i Extremity Extremity Narrative: trace edema of LE's bilaterally Assessment & Plan (1) Delivery by section: PLAN: Patient desires discharge home due to family concerns at home, and limited help. Reviewed discharge instructions. Will increase Labetalol to 300 mg BID for tonight's dose. No symptoms of pre e. Reviewed symptoms and reasons to call with pre e. Will set her up with home BP monitoring. To come into office this week for BP check. (2) History of depression: (3) Obesity: (4) Tobacco use: (5) Pre-eclampsia:
--- NOTE | 2024-03-30 13:16 | DCINST_ITS ---
Discharge Instructions Diet Discharge Diet: No restrictions Activity Discharge Activity: May Not Drive (until strong enough to slam on brake or turn a steering wheel sharply) and May Shower May resume sexual activity in: 6 weeks Ice area for (Minutes): 15 Weight Bearing Status: Weight bearing as tolerated Lifting Restrictions: nothing heavier than baby Dressing / Incision Call your doctor if your incision/area has: Continuous Slow Oozing, Sudden Increased Bleeding, Increased Pain/ Swelling, Increased Redness, Foul Smelling Discharge and Swelling at the incision site Call your doctor if you observe: Fever of 101 or Higher, Coldness, Increased Pain, Numbness or Tingling, Change in Color, Inability to urinate, Inability to have a bowel movement, Using more than 1 pad per hour, Shortness of breath, Dizziness, Fainting spells, Swelling in the ankles, Chest pain, Prolonged hiccupping, Increased palpitations (irregular heartbeat), Calf discomfort and Uncontrolled pain Suture Line Care: Avoid Pulling/Pushing and Avoid Pinching/Bending Remove Dressing in: leave in place till F/U (to be removed 5-7 days after section and can remove at appointment) Cleanse incision/area with: Soap & Water Follow Up Care Please Follow Up With: Milagro Richards MD When: 1 week for blood pressure check 6 weeks visit Test Results: Test results from this visit will be discussed in further detail at your follow- up appointment, if applicable. Discharge Plan Admission Admit Date/Time: 03/26/24 11:47 Primary Reason for Your Visit: delivery Attending Provider: Milagro Richards Primary Care Provider: Benigno Wirght Instructions Patient Instructions: After a Discharge Orders/Prescriptions Prescriptions: New nifedipine 90 mg Tablet Extended Release 90 mg PO DAILY Qty: 30 1RF labetalol 200 mg Tablet 300 mg PO BID Qty: 60 1RF Continued Select-OB + DHA 29 mg iron-1 mg -250 mg combo pack PO sertraline 50 mg tablet 50 mg PO DAILY Discontinued aspirin 81 mg tablet,delayed release (DR/EC) 162 mg PO DAILY acyclovir 400 mg tablet 400 mg PO TID Referrals / Follow Up: Benigno Wright MD [Primary Care Provider] - Disposition Disposition (needs filled in before D/C Order can be placed): Home, Self Care
--- NOTE | 2024-04-03 10:27 | PCM.DC.SUM ---
Providers Date of Admission: 03/26/24 Date of Discharge: 03/30/24 Primary Care Physician: Dr. Benigno Wright MD Reason For Visit: PRIMARY C SECTION Diagnosis Discharge Diagnosis (1) Delivery by section: Status: Acute Plan: Patient desires discharge home due to family concerns at home, and limited help. Reviewed discharge instructions. Will increase Labetalol to 300 mg BID for tonight's dose. No symptoms of pre e. Reviewed symptoms and reasons to call with pre e. Will set her up with home BP monitoring. To come into office this week for BP check. (2) History of depression: Status: Acute Code(s): Z86.59 - Personal history of other mental and behavioral disorders (3) Obesity: Status: Acute Code(s): E66.9 - Obesity, unspecified (4) Tobacco use: Status: Acute Code(s): Z72.0 - Tobacco use (5) Pre-eclampsia: Status: Acute Code(s): O14.90 - Unspecified pre-eclampsia, unspecified trimester Medications at Discharge Home Medications vit 33-iron 29 mg-folic acid 1 mg-dha 250 mg oral combo pack (Select-OB + DHA) pkg PO 03/26/24 sertraline 50 mg tablet 50 mg PO DAILY anx/depression 03/26/24 labetalol 200 mg tablet 300 mg (1.5 x 200 mg) PO BID #60 tabs 03/30/24 nifedipine 90 mg tablet,extended release 90 mg PO DAILY #30 tabs 03/30/24 Hospital Course Operations section and - (bilateral salpingectomy) Summary of Care Provided Minutes Spent on Discharge: 15 Hospital Course: Patient was admitted with pre eclampsia with severe features at 35 week gestation given severe range blood pressures, and a headache. An induction of labor was started. Given failed induction and failure to progress in labor, she was taken for a section. Patient requested sterilization. The patient underwent a primary section with sterilization. See operative report for details. She was on Labetalol 300 mg BID and Procardia 90 XL once daily for blood pressure control. She was discharged home in good condition with blood pressure monitoring at home. Weight / BMI Weight Weight: 253 lb 8.505 oz Body Mass Index (BMI) 43.4 ABG / Lab / Microbiology Data 03/29/24 05:50 03/29/24 05:50 Microbiology: Microbiology 03/26/24 Unknown Genital vaginal Group B Streptococcus Culture - Final Group B Beta Streptococcus is not isolated. D/C Instructions Discharge Diet: No restrictions May resume sexual activity in: 6 weeks Ice area for (Minutes): 15 Weight Bearing Status: Weight bearing as tolerated Call your doctor if your incision/area has: Continuous Slow Oozing, Sudden Increased Bleeding, Increased Pain/ Swelling, Increased Redness, Foul Smelling Discharge and Swelling at the incision site Call your doctor if you observe: Fever of 101 or Higher, Coldness, Increased Pain, Numbness or Tingling, Change in Color, Inability to urinate, Inability to have a bowel movement, Using more than 1 pad per hour, Shortness of breath, Dizziness, Fainting spells, Swelling in the ankles, Chest pain, Prolonged hiccupping, Increased palpitations (irregular heartbeat), Calf discomfort and Uncontrolled pain Suture Line Care: Avoid Pulling/Pushing and Avoid Pinching/Bending Cleanse incision/area with: Soap & Water Please Follow Up With: Milagro Richards MD When: 1 week for blood pressure check 6 weeks visit Meaningful Use Info Meaningful Use Meaningful Use Diagnoses (Choose all that apply): None applicable Ischemic Stroke Statin Dosing Therapy Reference: STATIN DOSE THERAPY REFERENCE: * Patients > 75 years receive moderate or high dose statin therapy. * Patients 75 years or YOUNGER should receive HIGH intensity statin dose unless contraindicated. You will be required to document reason for non-treatment if statin daily dose does not meet guidelines. HIGH DOSE STATIN THERAPY DAILY Atorvastatin > than or = to 40 mg Rosuvastatin > than or = to 20 mg Amlodipine + Atorvastatin > than or = to 2.5/40 mg Ezetimibe + Simvastatin 10/80 mg Simvastatin 80mg Discharge Plan Admission Admit Date/Time: 03/26/24 11:47 Primary Reason for Your Visit: delivery Attending Provider: Milagro Richards Primary Care Provider: Benigno Wright Patient Instructions: After a Discharge Orders/Prescriptions Prescriptions: New nifedipine 90 mg Tablet Extended Release 90 mg PO DAILY Qty: 30 1RF labetalol 200 mg Tablet 300 mg PO BID Qty: 60 1RF Continued Select-OB + DHA 29 mg iron-1 mg -250 mg combo pack PO sertraline 50 mg tablet 50 mg PO DAILY Discontinued aspirin 81 mg tablet,delayed release (DR/EC) 162 mg PO DAILY acyclovir 400 mg tablet 400 mg PO TID Referrals / Follow Up: Benigno Wright MD [Primary Care Provider] - Disposition Disposition (needs filled in before D/C Order can be placed): Home, Self Care
== END 2024-03-30 15:20 | disposition home or self-care (01) | DRG 785 ==
LOC: WP 11:49
PROVIDERS: Advanced Practice Midwife; Admitting Provider Obstetrics & Gynecology; PCP Family Medicine; Visit Provider Obstetrics & Gynecology
DX: O14.14 Severe pre-eclampsia complicating childbirth (principal); F17.210 Nicotine dependence, cigarettes, uncomplicated; O99.214 Obesity complicating childbirth; Z30.2 Encounter for sterilization; O99.334 Smoking (tobacco) complicating childbirth; O61.0 Failed medical induction of labor; O90.81 Anemia of the puerperium; O76 Abnormality in fetal heart rate and rhythm complicating labor and delivery; Z37.0 Single live birth; Z3A.35 35 weeks gestation of pregnancy; Z79.899 Other long term (current) drug therapy
CPT/HCPCS: 59025; 59050; 71045; 76815; 80048; 80053; 82565; 82570; 84156; 84450; 84460; 84550; 85025; 85027; 86780; 86850; 86900; 86901; 87081; 87653; 88302; 88307; 99221; J7120; A4216; G0378; J0702; J1940; J2405

== ENCOUNTER 2024-06-21 09:44 | Emergency (ER) | payer MEDICAID, SELFPAY ==
[2024-06-21 09:45] VITALS: BP 157/107; PULSE 122; RESP 18; TEMP 36.8; O2SAT 100; BMI 36.6
[2024-06-21 10:08] VITALS: BP 157/107; PULSE 122; RESP 18; TEMP 36.8; O2SAT 100
[2024-06-21] MEDS: Acetaminophen 500 MG Tablet 1000 MG PO (10:22)
[2024-06-21 10:24] VITALS: BP 144/110; PULSE 106; RESP 16; TEMP 36.6; O2SAT 97
== END 2024-06-21 10:25 | disposition home or self-care (01) ==
LOC: ED 10:10
PROVIDERS: Emergency Provider Emergency Medicine; PCP Family Medicine; Visit Provider Emergency Medicine
DX: L03.213 Periorbital cellulitis (principal); H10.9 Unspecified conjunctivitis; M54.9 Dorsalgia, unspecified; F17.200 Nicotine dependence, unspecified, uncomplicated; Z88.0 Allergy status to penicillin; Z79.899 Other long term (current) drug therapy
CPT/HCPCS: 99283